=== PATIENT | female | born 1950 | race Caucasian/White ===

== ENCOUNTER 2016-05-07 09:35 | Emergency (ER) | payer OTHER ==
[2016-05-07 09:41] VITALS: PULSE 76; TEMP 98.1; BMI 45.7
--- NOTE | 2016-05-07 09:43 | PDOC ---
History of Present Illness - General History Source: Patient Exam Limitations: No Limitations - History of Present Illness Initial Comments: 05/07/16 10:16 05/07/16 10:16 <Esteban Blanco - Last Filed: 05/07/16 10:15> - History of Present Illness Initial Comments: 05/07/16 10:32 The pt is a 66 year old female with a PMH of hypothyroidism, arthritis, hx of vaginal bleeding who presents to ED complaining of a headache on right side that radiates to her right shoulder and RUE. It is intermittent, 7/10, sharp. She also had sciatica on R side recently that resolved. The pain started 2 weeks ago. She denies trauma, numbness, weakness, paresthesia. She denies chest pain, SOB, cough, fever, She denies N/V, diarrhea, constipation. Sh denies dysuria, increased frequency, urgency. <Kamini Pollard - Last Filed: 05/07/16 17:56> - General Chief Complaint: Headache Stated Complaint: HEADACHE Time Seen by Provider: 05/07/16 09:39 Past History <Esteban Blanco - Last Filed: 05/07/16 10:15> - Past Medical History HTN: Yes Thyroid Disease: Yes (HYPOTHYROID) - Surgical History Abdominal Surgery: Yes (HERNIA) - Immunization History Td Vaccination: No - Psycho/Social/Smoking Cessation Hx Anxiety: No Suicidal Ideation: No Smoking Status: No Smoking History: Never smoked Number of Cigarettes Smoked Daily: 0 Hx Alcohol Use: No Drug/Substance Use Hx: No Substance Use Type: None <Kamini Pollard - Last Filed: 05/07/16 17:56> - Past Medical History Allergies/Adverse Reactions: Allergies Allergy/AdvReac Type Severity Reaction Status Date / Time No Known Allergies Allergy Verified 05/07/16 09:43 Home Medications: Ambulatory Orders Levothyroxine [Synthroid -] 112 mcg PO DAILY 08/24/15 Losartan Potassium 25 mg PO DAILY 08/24/15 Cetirizine HCl [24Hour Allergy] 10 mg PO DAILY 05/07/16 Review of Systems - Review of Systems Able to Perform ROS?: Yes Comments:: 05/07/16 10:39 REVIEW OF SYSTEMS CONSTITUTIONAL: Absent: fever, chills, diaphoresis, generalized weakness, malaise, loss of appetite, weight change HEENT: Absent: rhinorrhea, nasal congestion, throat pain, throat swelling, difficulty swallowing, mouth swelling, ear pain, eye pain, visual changes CARDIOVASCULAR: Absent: chest pain, syncope, palpitations, irregular heart rate, lightheadedness , peripheral edema RESPIRATORY: Absent: cough, shortness of breath, dyspnea with exertion, orthopnea, wheezing, stridor, hemoptysis GASTROINTESTINAL: Absent: abdominal pain, abdominal distension, nausea, vomiting, diarrhea, constipation, melena, hematochezia GENITOURINARY: Absent: dysuria, frequency, urgency, hesitancy, hematuria, flank pain, genital pain MUSCULOSKELETAL: pain in right shoulder Absent: myalgia, joint swelling, back pain, neck pain SKIN: Absent: rash, itching, pallor HEMATOLOGIC/IMMUNOLOGIC: Absent: easy bleeding, easy bruising, lymphadenopathy, frequent infections ENDOCRINE: Absent: unexplained weight gain, unexplained weight loss, heat intolerance, cold intolerance NEUROLOGIC: headache Absent: focal weakness or paresthesias, dizziness, unsteady gait, seizure, mental status changes, bladder or bowel incontinence PSYCHIATRIC: Absent: anxiety, depression, suicidal or homicidal ideation, hallucinations Is the patient limited [place] Islander proficient: Yes <Kamini Pollard - Last Filed: 05/07/16 17:56> *Physical Exam - Vital Signs Last Vital Signs Temp Pulse Resp BP Pulse Ox 98.1 F 76 18 167/93 100 05/07/16 09:37 05/07/16 09:37 05/07/16 09:37 05/07/16 09:37 05/07/16 09:37 <Esteban Blanco - Last Filed: 05/07/16 10:15> - Vital Signs Last Vital Signs Temp Pulse Resp BP Pulse Ox 98.1 F 76 18 167/93 100 05/07/16 09:37 05/07/16 09:37 05/07/16 09:37 05/07/16 09:37 05/07/16 09:37 - Physical Exam Comments: 05/07/16 10:40 GENERAL: The patient is awake, alert, and fully oriented, in no acute distress. HEAD: Normal with no signs of trauma, mild point tenderness over right side of the head over the attachment of trapezius muscle, no tenderness over c spine. EYES: PERRL, extraocular movements intact, sclera anicteric, conjunctiva clear. No ptosis. ENT: Ears normal, nares patent, oropharynx clear without exudates, moist mucous membranes. NECK: Trachea midline, full range of motion, supple. LUNGS: Breath sounds equal, clear to auscultation bilaterally, no wheezes, no crackles, no accessory muscle use. HEART: Regular rate and rhythm, S1, S2 without murmur, rub or gallop. ABDOMEN: Obese, Soft, nontender, nondistended, normoactive bowel sounds, no guarding, no rebound, no hepatosplenomegaly, no masses. EXTREMITIES: 2+ pulses, warm, well-perfused, 1+ edema around ankles B/L. NEUROLOGICAL: Cranial nerves II through XII grossly intact. Normal speech, gait not observed. PSYCH: Normal mood, normal affect. SKIN: Warm, dry, normal turgor, no rashes or lesions noted <Kamini Pollard - Last Filed: 05/07/16 17:56> Medical Decision Making - Medical Decision Making 05/07/16 10:42 The pt is a 66 year old female who presents complaining of a headache. We ordered CT w/o contrast. 05/07/16 11:51 CT head doesn't show any acute pathology. We recommend to f/u with a Neurologist as outpatient to obtain MRI of the c spine if symptoms persist. We recommend to take Motrin 400 mg Q6H or when when needed. <Kamini Pollard - Last Filed: 05/07/16 17:56> *DC/Admit/Observation/Transfer <Esteban Blanco - Last Filed: 05/07/16 10:15> <Kamini Pollard - Last Filed: 05/07/16 17:56> Diagnosis at time of Disposition: Headache - Discharge Dispostion Disposition: HOME Condition at time of disposition: Stable - Referrals Referrals: Vasquez Craig MD [Staff Physician] - Call tomorrow - Patient Instructions Additional Instructions: Please take Motrin 400 mg when needed. Visit your primary care physician and neurologist within the next 2 weeks. If your symptoms worsen come back to emergency room as soon as possible.
--- NOTE | 2016-05-07 10:18 | PDOC ---
Attending Attestation - Resident Resident Name: IsaakCraigKamini Bacon - ED Attending Attestation I have performed the following: I have examined & evaluated the patient, The case was reviewed & discussed with the resident, I agree w/resident's findings & plan, Exceptions are as noted - HPI HPI: 05/07/16 10:17 The patient is a 66-year-old female, with a significant past medical history of hypertension, morbid obesity, who presents to the emergency department with approximately 2 weeks of right sided neck pain/occipital headache. The pain occasionally radiates to the right upper arm. She occasionally feels "tingling" of the right upper arm. The neck pain is worse with palpation of the affected area, and slightly with movement at the neck. She denies distal weakness. She denies speech deficit, visual changes, gait instability. She denies fever. She denies rash. - Physicial Exam PE: 05/07/16 10:17 The patient is well-appearing and in no acute distress There is tenderness to palpation and associated muscle spasm in the area of the attachment of the trapezius muscle on the right This reproduces her symptoms There are no deficits to motor, light touch or temperature in the bilateral upper extremities 05/07/16 10:18 - Medical Decision Making 05/07/16 10:[address] to rule out intracranial pathology 05/07/16 12:04 CT noted, without any evidence of acute intracranial pathology Will discharge home with NSAID prescription, and close follow-up She understands the need to follow up with neurology in order to rule out cervical radiculopathy Clinical impression: Musculoskeletal neck pain I discussed the physical exam findings, ancillary test results and final diagnoses with the patient. I answered all of the patient's questions. The patient was satisfied with the care received and felt comfortable with the discharge plan and treatment plan. The patient will call their primary care physician within 24 hours to arrange follow-up and will return to the Emergency Department with any new, persistent or worsening symptoms. A portion of this note was documented by scribe services under my direction. I have reviewed the details of the note, within reason, and agree with the documentation with the following case summary and management plan written by me. Discharge Disposition - Diagnosis Headache - Discharge Dispostion Disposition: HOME Condition at time of disposition: Stable - Referrals Referrals: Vasquez Craig MD [Staff Physician] - Call tomorrow - Patient Instructions Additional Instructions: Please take Motrin 400 mg when needed. Visit your primary care physician and neurologist within the next 2 weeks. If your symptoms worsen come back to emergency room as soon as possible.
[2016-05-07 11:23] VITALS: BP 159/81
[2016-05-07] MEDS ORDERED: IBUPROFEN 400 MG TABLET (FP) PO ONE ×2 (12:01→12:06)
== END 2016-05-07 12:14 | disposition home or self-care (01) ==
LOC: FER 09:35
DX: R51 Headache (principal); I10 Essential (primary) hypertension; E03.9 Hypothyroidism, unspecified
CPT/HCPCS: 70450-TC; 99282-25

== ENCOUNTER 2018-07-12 13:04 | Day surgery (SDC) | payer OTHER ==
[2018-07-11 16:02] VITALS: BMI 46.0
[2018-07-12] MEDS ORDERED: LIDOCAINE HCL/PF 2% SDV 5ML VIAL ONE (14:25)
[2018-07-12] MEDS ORDERED: DEXAMETHASONE SOD PHOSPHATE 4 MG/1 ML VIAL ONE (14:25)
[2018-07-12] MEDS ORDERED: PROPOFOL 20 ML ONE (14:26)
--- NOTE | 2018-07-12 14:35 | HP ---
Admitting History and Physical - Admission Chief Complaint: Vaginal bleeding History of Present Illness: 68 yo Para 5, with postmenopausal bleeding, is pre op for D&C hysteroscopy. History Source: Patient Limitations to Obtaining History: No Limitations - Past Medical History ...: No ...Para: 5 - Past Surgical History Additional Past Surgical History: Thyroidectomy Breast biopsy Hernia repair - Smoking History Smoking history: Never smoked Aproximately how many cigarettes per day: 0 - Alcohol/Substance Use Hx Alcohol Use: No Home Medications - Allergies Allergies/Adverse Reactions: Allergies Allergy/AdvReac Type Severity Reaction Status Date / Time adhesive tape Allergy "rash" Verified 07/11/18 16:24 No Known Drug Allergies Allergy Verified 07/11/18 16:24 - Home Medications Home Medications: Ambulatory Orders Losartan Potassium 25 mg PO DAILY 08/24/15 Levothyroxine [Synthroid -] 100 mcg PO DAILY 07/11/18 Family Disease History - Family Disease History Family History: Unremarkable Review of Systems - Review of Systems Constitutional: reports: No Symptoms Eyes: reports: No Symptoms HENT: reports: No Symptoms Neck: reports: No Symptoms Cardiovascular: reports: No Symptoms Respiratory: reports: No Symptoms Gastrointestinal: reports: No Symptoms Genitourinary: reports: Vaginal Bleeding Breasts: reports: No Symptoms Reported Musculoskeletal: reports: No Symptoms Neurological: reports: No Symptoms Psychiatric: reports: No Symptoms Pain Intensity: 0 Physical Examination Vital Signs: Vital Signs Temperature 98.4 F 07/12/18 13:30 Pulse Rate 86 07/12/18 13:30 Respiratory Rate 20 07/12/18 13:30 Blood Pressure 148/86 07/12/18 13:30 O2 Sat by Pulse Oximetry (%) 96 07/12/18 13:30 Constitutional: No: No Distress Eyes: Yes: Conjunctiva Clear HENT: Yes: Atraumatic Neck: Yes: Supple Cardiovascular: Yes: Regular Rate and Rhythm Respiratory: Yes: Regular Gastrointestinal: Yes: Normal Bowel Sounds Renal/: Yes: WNL Breast(s): Yes: WNL Musculoskeletal: Yes: WNL Extremities: Yes: WNL Neurological: Yes: Alert, Oriented ...Motor Strength: WNL Psychiatric: Yes: Alert, Oriented Assessment/Plan Postmenopausal bleeding Pre op for D&C hysteroscopy Consent signed Anesthesia to see patient
--- NOTE | 2018-07-12 15:11 | OP ---
Operative Note - Note: Operative Date: 07/12/18 Pre-Operative Diagnosis: Postmenopausal bleeding Operation: D&C hysteroscopy Findings: Intrauterine device Post-Operative Diagnosis: Same as Pre-op Surgeon: Kenzie Torres Anesthesia: General Specimens Removed: Endometrial curettings / IUD Estimated Blood Loss (mls): 5 Operative Report Dictated: Yes
[2018-07-12] MEDS ORDERED: oxyCODONE HCL 5 MG TABLET PO PRN (15:25)
[2018-07-12] MEDS ORDERED: ONDANSETRON 4 MG/2 ML VIAL IVPUSH PRN (15:25)
[2018-07-12] MEDS ORDERED: LACTATED RINGERS SOLUTION 1,000 ML IV SCH (15:30)
[2018-07-12 18:02] VITALS: BP 145/74; PULSE 76; TEMP 97.9
--- NOTE | 2018-07-13 00:31 | OP ---
DATE OF OPERATION: 07/12/2018 PREOPERATIVE DIAGNOSIS: Postmenopausal bleeding. POSTOPERATIVE DIAGNOSIS: Postmenopausal bleeding. PROCEDURE: Dilation and curettage, hysteroscopy. SURGEON: Kenzie Torres MD ANESTHESIA: General. COMPLICATIONS: None. ESTIMATED BLOOD LOSS: Less than 5 mL. PROCEDURE: Patient was taken to the operating room, where general anesthesia was administered. Patient was then placed in lithotomy position. She was then prepped and draped in appropriate sterile fashion. A weighted speculum was placed in the vagina. The anterior lip of the cervix was grasped with a single-tooth tenaculum. An IUD string was noted, and using a ring forceps, the IUD string was pulled out and it was an intrauterine device that was removed. Then the hysteroscope was gently inserted into the uterine cavity. The uterine cavity was visualized, and a sharp curettage was then performed. When finished, the removed. The patient was taken out of lithotomy position. She was taken to PACU in stable condition. PATHOLOGY: Endometrial curettings; intrauterine device. KENZIE TORRES M.D. [id number]
--- NOTE | 2018-07-16 11:24 | PATH ---
Surgical Pathology Report Patient Name: JENNI THAYER [facility]. Rec. #: [id number] /Age/Gender: 1950 (Age: 68) / F Account: [id number] Location: [facility] SURGICAL Taken: 07/12/2018 Received: 07/13/2018 Reported: 07/16/2018 Physicians: Kenzie Torres M.D. Specimen(s) Received A: IUD B: ENDOMETRIAL CURETTINGS Clinical History Postmenopausal bleeding Final Diagnosis A. INTRAUTERINE DEVICE (IUD), REMOVAL: FOREIGN BODY MATERIAL CONSISTENT WITH INTRAUTERINE DEVICE (IUD). MACROSCOPIC DIAGNOSIS. B. ENDOMETRIAL CURETTINGS, DILATION AND CURETTAGE: FRAGMENTS OF AN ENDOMETRIAL POLYP, RARE STRIPS OF ENDOMETRIAL GLANDS, SUPERFICIAL MYOMETRIUM, ENDOCERVICAL MUCOSA WITH FOCAL ACUTE INFLAMMATION AND SQUAMOUS METAPLASIA, AND BENIGN CERVICAL SQUAMOUS MUCOSA. Electronically Signed Neela Naranjo M.D. Gross Description A. Received fresh labeled "IUD," is a 3.2 cm in length T-shaped device with attached string, consistent with an IUD. No soft tissue is present. No sections are submitted, gross only. B. Received in formalin labeled "endometrial curettings," is a 1.8 x 1.5 x 0.3 cm aggregate of anguiano-brown soft tissue fragments admixed with mucus. The formalin is filtered and the specimen is entirely submitted in one cassette. /07/13/2018 saudi07/13/2018
== END 2018-07-12 17:55 | disposition home or self-care (01) ==
LOC: JASU-SURG 13:04
PROVIDERS: ATTEND Obstetrics & Gynecology
PROC: 0UDB7ZX Extraction of Endometrium, Via Natural or Artificial Opening, Diagnostic (ICD-10-PCS; principal; 2018-07-12 14:55)
PROC: 0UJD8ZZ Inspection of Uterus and Cervix, Via Natural or Artificial Opening Endoscopic (ICD-10-PCS; 2018-07-12 14:55)
DX: N95.0 Postmenopausal bleeding (principal)
CPT/HCPCS: 88300-TC; 88305-TC; 94760

== ENCOUNTER 2021-04-24 12:55 | Emergency (ER) | payer OTHER ==
[2021-04-24] MEDS ORDERED: ACETAMINOPHEN 325 MG TABLET (FP) PO ONE (13:24)
[2021-04-24] MEDS ORDERED: LIDOCAINE 5% TOPICAL PATCH TP ONE (13:24)
[2021-04-24 13:26] VITALS: TEMP 98.4; BMI 46.0
[2021-04-24] MEDS ORDERED: LIDOCAINE 5% TOPICAL PATCH ONE (13:28)
[2021-04-24] MEDS ORDERED: ACETAMINOPHEN 325 MG TABLET (FP) ONE (13:29)
[2021-04-24 15:18] LABS: EOS % 3.9 % (0-4.5); HEMATOCRIT 43.6 % (32.4-45.2); HEMOGLOBIN 14.5 GM/dL (10.7-15.3); LYMPH % 24.7 % (8-40); MCH 31.5 pg (25.7-33.7); MCHC 33.2 g/dl (32.0-36.0); MEAN PLT VOLUME 10.9 fl (7.5-11.1); MONO % 11.1 % (3.8-10.2); NEUT % 59.3 % (42.8-82.8); PLATELET COUNT 201 10^3/uL (134-434); RBC 4.59 M/mm3 (3.60-5.2); RDW 13.5 % (11.6-15.6); WHITE BLOOD COUNT 5.3 K/mm3 (4.0-10.0)
[2021-04-24 15:42] LABS: ALBUMIN 3.5 g/dl (3.4-5.0); BILIRUBIN,TOTAL 0.6 mg/dL (0.2-1); BLOOD UREA NITROGEN 7.6 mg/dL (7-18); CALCIUM 8.7 mg/dL (8.5-10.1); CREATININE 0.6 mg/dL (0.55-1.3); TOT PROT 7.3 g/dl (6.4-8.2)
[2021-04-24 17:17] VITALS: BP 148/74; PULSE 55
[2021-04-24] MEDS ORDERED: LIDOCAINE PATCH REMOVAL MC SCH (22:00)
== END 2021-04-24 17:35 | disposition home or self-care (01) ==
LOC: FER 12:55
DX: M54.42 Lumbago with sciatica, left side (principal); F41.9 Anxiety disorder, unspecified
CPT/HCPCS: 36415; 71046-TC-FY; 80053; 84443; 84484; 85025; 93005; 93971-TC; 99285-25

== ENCOUNTER 2021-06-23 21:07 | Emergency (ER) | payer OTHER ==
[2021-06-23 21:28] VITALS: BP 152/72; PULSE 57; TEMP 98.2; BMI 46.0
[2021-06-23] MEDS ORDERED: ALBUTEROL SO4 0.083% IH SOL 2.5 MG/3 ML VIAL.NEB. NEB STA (22:08)
[2021-06-23] MEDS ORDERED: predniSONE 20 MG TABLET (UD) PO ONE (22:09)
[2021-06-23] MEDS ORDERED: ALBUTEROL SO4 0.083% IH SOL 2.5 MG/3 ML VIAL.NEB. NEB ONE (22:11)
[2021-06-23] MEDS ORDERED: predniSONE 20 MG TABLET (UD) ONE (22:11)
[2021-06-24] MEDS ORDERED: AZITHROMYCIN 250 MG TABLET PO ONE (00:04)
[2021-06-24] MEDS ORDERED: AZITHROMYCIN 250 MG TABLET ONE (00:09)
[2021-06-26 00:07] LABS: SARS-CoV-2 NAA Not Detected (Not Detected)
== END 2021-06-24 00:12 | disposition home or self-care (01) ==
LOC: FER 21:07
PROC: 3E0F7GC Introduction of Other Therapeutic Substance into Respiratory Tract, Via Natural or Artificial Opening (ICD-10-PCS; principal; 2021-06-23)
DX: J18.9 Pneumonia, unspecified organism (principal)
CPT/HCPCS: 71045-TC-FY; 93005; 99291; C9803-CS; U0003; U0005

== ENCOUNTER 2021-06-24 12:45 | Emergency (ER) | payer OTHER ==
[2021-06-24 13:04] VITALS: BP 129/68; PULSE 66; TEMP 97.7; BMI 46.0
== END 2021-06-24 18:20 | disposition home or self-care (01) ==
LOC: FER 12:45
DX: J18.9 Pneumonia, unspecified organism (principal)
CPT/HCPCS: 71250-TC; 99284-25

== ENCOUNTER 2021-12-27 19:13 | Emergency (ER) | payer OTHER ==
[2021-12-27 19:42] VITALS: BP 155/75; PULSE 68; RESP 18; TEMP 98.5; BMI 42.1
== END 2021-12-27 20:39 | disposition home or self-care (01) ==
LOC: FER 19:13
DX: K52.9 Noninfective gastroenteritis and colitis, unspecified (principal); I10 Essential (primary) hypertension
CPT/HCPCS: 99281-25